=== PATIENT | female | born 1955 | race Two or more races ===

== ENCOUNTER 2016-11-11 06:59 | Emergency (ER) | payer OTHER ==
[2016-11-11 07:12] VITALS: TEMP 97.3; BMI 37.9
[2016-11-11] MEDS ORDERED: TETANUS AND DIPHTHERIA TOXOID 0.5 ML DISP.SYRIN IM ONE (07:29)
--- NOTE | 2016-11-11 07:32 | PDOC ---
History of Present Illness - General Chief Complaint: Bite Stated Complaint: DOG BITE Time Seen by Provider: 11/11/16 07:22 History Source: Patient Exam Limitations: No Limitations - History of Present Illness Initial Comments: 11/11/16 07:25 61 yo F with pmhx of DVT presents s/p dog bite. She was leaving to go to work today when a neighbors dog bit her. He grabbed on to her foot and required neighbor to pull dog off. Minor abrasion to back of heal. No skin break. Dog was off the leash but was a known neighbor dog. Denies CP, INFANTE, SOB, fevers, chills. Timing/Duration: reports: just prior to arrival Severity: Yes: mild Location: reports: extremities Respiratory Risk Factors: reports: no cause identified Past History - Past Medical History Allergies/Adverse Reactions: Allergies Allergy/AdvReac Type Severity Reaction Status Date / Time No Known Allergies Allergy Verified 11/11/16 07:12 Home Medications: Ambulatory Orders Amoxicillin/Potassium Clav [Amox-Clav 875-125 mg Tablet] 1 each PO BID #6 tablet 11/11/16 DVT: Yes (lle) - Psycho/Social/Smoking Cessation Hx Anxiety: No Suicidal Ideation: No Smoking History: Former smoker Have you smoked in the past 12 months: Yes Information on smoking cessation initiated: No Hx Alcohol Use: No Drug/Substance Use Hx: No Substance Use Type: None Review of Systems - Review of Systems Integumentary: Yes: Lesions (right heal ) All Other Systems: Reviewed and Negative *Physical Exam - Vital Signs Last Vital Signs Temp Pulse Resp BP Pulse Ox 97.3 F L 70 20 128/77 100 11/11/16 07:09 11/11/16 07:09 11/11/16 07:09 11/11/16 07:09 11/11/16 07:09 - Physical Exam General Appearance: Yes: Appropriately Dressed. No: Apparent Distress HEENT: positive: EOMI, BENNETT Neck: positive: Supple Respiratory/Chest: positive: Lungs Clear, Normal Breath Sounds Cardiovascular: positive: Regular Rhythm, Regular Rate Gastrointestinal/Abdominal: positive: Normal Bowel Sounds, Flat, Soft Musculoskeletal: positive: Normal Inspection. negative: CVA Tenderness Extremity: positive: Normal Inspection, Other (2 cm superficial laceration of right heal ) Medical Decision Making - Medical Decision Making 11/11/16 07:55 A:61 yo F with pmhx of DVT presents s/p dog bite. P: * Wound care * Tetanus Vaccine * [facility] paperwork * 3 day course augmentin. *DC/Admit/Observation/Transfer Diagnosis at time of Disposition: Dog bite Qualifiers: Encounter type: initial encounter Qualified Code(s): W54.0XXA - Bitten by dog, initial encounter - Discharge Dispostion Disposition: HOME Admit: No - Prescriptions Prescriptions: Amoxicillin/Potassium Clav [Amox-Clav 875-125 mg Tablet] 1 each PO BID #6 tablet - Patient Instructions Printed Discharge Instructions: How to Care for a Domestic Animal Bite Additional Instructions: Keep your wound clean and dry. Bacitracin twice a day. Keep covered until dry. Take antibiotics to completion. Please get as much info from dog quencher operator as possible . Regular diet. Increase activity as tolerated. - Post Discharge Activity Work/School Note: Back to Work
--- NOTE | 2016-11-11 08:13 | PDOC ---
Attending Attestation - Resident Resident Name: Chuck Olvera - ED Attending Attestation I have performed the following: I have examined & evaluated the patient, The case was reviewed & discussed with the resident, I agree w/resident's findings & plan, Exceptions are as noted - HPI HPI: 11/11/16 08:11 61-year-old female nondiabetic with abrasion to left heel after she was bit by her neighbors dog. Bite went through her sneaker and stocking, sustained an abrasion, no motor or sensory deficits. Dog is known to her, lives with the human resource statistician in her building. - Physicial Exam PE: 11/11/16 08:12 Vital signs normal. Agree with exam, very superficial abrasion to left foot - Medical Decision Making 11/11/16 08:12 Patient seen and evaluated with the resident. I agree with the overall evaluation, assessment, and management with the following summary of visit: 61-year-old female with superficial abrasion from dog bite, no motor or sensory deficit or deep tissue injury. Tetanus prophylaxis [facility] protocol followed, they were contacted, no urgent indication for rabies prophylaxis Antibiotic ppx x3d
[2016-11-11] MEDS ORDERED: BACITRACIN 30 GM TUBE TOPICAL OINTMENT ONE (09:07)
[2016-11-11 09:18] VITALS: BP 132/70; PULSE 86
== END 2016-11-11 09:18 | disposition home or self-care (01) ==
LOC: JER 06:59
PROC: 3E0234Z Introduction of Serum, Toxoid and Vaccine into Muscle, Percutaneous Approach (ICD-10-PCS; principal; 2016-11-11)
DX: S91.351A Open bite, right foot, initial encounter (principal); W54.0XXA Bitten by dog, initial encounter; Y93.89 Activity, other specified; Y92.008 Other place in unspecified non-institutional (private) residence as the place of occurrence of the external cause
CPT/HCPCS: 99282-25